=== PATIENT | female | born 1950 | race Caucasian/White ===

== ENCOUNTER → 2019-09-14 10:10 | Outpatient (CLI) | payer MEDICARE | END | disposition home or self-care (01) | LOC: D.MRI 10:10 | PROVIDERS: ATTEND Internal Medicine Nephrology | DX: I70.1 Atherosclerosis of renal artery (principal) ==

== ENCOUNTER → 2019-09-24 09:57 | Outpatient (CLI) | payer MEDICARE | END | disposition home or self-care (01) | LOC: D.CT 09:57 | PROVIDERS: ATTEND Family Medicine | DX: R91.1 Solitary pulmonary nodule (principal); M54.5 Low back pain ==

== ENCOUNTER 2019-10-08 07:33 | Outpatient (CLI) | payer MEDICARE ==
[~2019-10-08] VITALS: Ht 167.6 cm; Wt 102.3 kg
[2019-10-08 07:59] LABS: BASOPHILS 0.3 % (0-2); EOSINOPHILS 2.9 % (0-7); HEMATOCRIT 38.4 % (36.0-48.0); HEMOGLOBIN 11.7 g/dL (12-16); IMMATURE GRANULOCYTES 0.3 % (0-5); LYMPHOCYTES 25.5 % (15-50); MCH 28.3 pg (26.0-34.0); MCHC 30.5 g/dL (31.0-37.0); MEAN PLATELET VOLUME 8.6 fL (7.4-10.4); MONOCYTES 7.4 % (2-11); NEUTROPHILS 63.6 % (40-80); PLATELET COUNT 315 10x3/uL (130-400); RBC 4.13 10x6/uL (4.00-5.40); RDW 13.4 % (11.5-14.5); WBC 9.8 10x3/uL (4.8-10.8)
[2019-10-08 08:22] LABS: APTT 26.5 SECONDS (22.8-39.4); INR 0.93 (0.85-1.17); PROTIME 12.4 SECONDS (11.6-15.0)
[2019-10-08] MEDS ORDERED: AMITRIPTYLINE H50 MG PO (08:23)
[2019-10-08] MEDS ORDERED: ZOCOR20 MG PO (08:23)
[2019-10-08] MEDS ORDERED: TOPROL XL25 MG (08:24)
[2019-10-08] MEDS ORDERED: PLAVIX75 MG PO (08:25)
[2019-10-08] MEDS ORDERED: VITAMIN D5000 UNI1 PO (08:25)
[2019-10-08] MEDS ORDERED: TREXALL5 MG PO (08:27)
[2019-10-08 08:38] VITALS: BP 130/64; Ht 167.6 cm; Wt 102.3 kg
[2019-10-08 08:40] LABS: ANION GAP 8.7 mmol/L (8-16); CARBON DIOXIDE 30.2 mmol/L (21.0-32.0); CREATININE - SERUM 1.9 mg/dL (0.6-1.3); POTASSIUM - SERUM 4.9 mmol/L (3.5-5.1)
[2019-10-08] MEDS ORDERED: PROTONIX40 MG PO (08:42)
--- NOTE | 2019-10-08 12:47 | NUR ---
1150 INSTRUCTIONS GIVEN TO PT AND DRINKING WELL DENIES PAIN
[2019-10-10 14:09] LABS: ACID FAST SMEAR Negative (()); AFB SPECIMEN PROCESSING Concentration (())
[2019-10-12 12:09] LABS: FUNGUS STAIN Final report (())
== END 2019-10-08 18:08 ==
LOC: D.SP 07:33 → D.CT 10:00 → D.SP 18:08
PROVIDERS: Radiology Vascular & Interventional Radiology; ATTEND Family Medicine
DX: R19.00 Intra-abdominal and pelvic swelling, mass and lump, unspecified site (principal); E78.2 Mixed hyperlipidemia; E20.1 Pseudohypoparathyroidism; K21.9 Gastro-esophageal reflux disease without esophagitis; I12.9 Hypertensive chronic kidney disease with stage 1 through stage 4 chronic kidney disease, or unspecified chronic kidney disease; N18.3 Chronic kidney disease, stage 3 (moderate); M19.90 Unspecified osteoarthritis, unspecified site; R91.1 Solitary pulmonary nodule

== ENCOUNTER 2019-12-18 08:30 | Day surgery (SDC) | payer MEDICARE ==
[~2019-12-18] VITALS: Ht 167.6 cm; Wt 90.9 kg
[~2019-12-18 08:30] MED LIST: AMITRIPTYLINE H50 MG PO; PLAVIX75 MG PO; PROTONIX40 MG PO; TOPROL XL25 MG; TREXALL5 MG PO; VITAMIN D5000 UNI1 PO; ZOCOR20 MG PO
[2019-12-18 09:08] LABS: HEMATOCRIT 36.8 % (36.0-48.0); HEMOGLOBIN 11.4 g/dL (12-16); LYMPHOCYTES 26.2 % (15-50); MCH 28.2 pg (26.0-34.0); MCV 91.1 fL (80.0-100.0); MEAN PLATELET VOLUME 8.2 fL (7.4-10.4); NEUTROPHILS 61.9 % (40-80); PLATELET COUNT 341 10x3/uL (130-400); RBC 4.04 10x6/uL (4.00-5.40); RDW 12.8 % (11.5-14.5); WBC 7.2 10x3/uL (4.8-10.8)
[2019-12-18 09:15] LABS: ANION GAP 12.2 mmol/L (8-16); CALCIUM 9.6 mg/dL (8.5-10.1); CARBON DIOXIDE 28.3 mmol/L (21.0-32.0); CREATININE - SERUM 2.1 mg/dL (0.6-1.3); POTASSIUM - SERUM 4.5 mmol/L (3.5-5.1)
[2019-12-18 09:17] LABS: APTT 28.2 SECONDS (22.8-39.4); INR 0.97 (0.85-1.17); PROTIME 12.9 SECONDS (11.6-15.0)
[2019-12-18 09:33] VITALS: BP 128/74; Ht 167.6 cm; Wt 90.9 kg
--- NOTE | 2019-12-18 18:14 | NUR ---
1800 CXR W/O PNEUMOTHORAX. VSS. IV D/C'D WITH CANNULA INTACT.DISCHARGE INSTRUCTIONS GIVEN DISHCARGED HOME IN STABLE CONDITION W/O C/O
== END 2019-12-18 18:00 | disposition home or self-care (01) ==
LOC: D.SP 08:30 → D.CT 11:00 → D.SP 18:00
PROVIDERS: Radiology Diagnostic Radiology; ATTEND Family Medicine
DX: R91.1 Solitary pulmonary nodule (principal); E55.9 Vitamin D deficiency, unspecified; D64.9 Anemia, unspecified; K21.9 Gastro-esophageal reflux disease without esophagitis; I10 Essential (primary) hypertension; N18.3 Chronic kidney disease, stage 3 (moderate); E66.9 Obesity, unspecified; E21.3 Hyperparathyroidism, unspecified

== ENCOUNTER 2020-06-28 05:40 | Day surgery (SDC) | payer MEDICARE ==
[~2020-06-28] VITALS: Ht 167.6 cm; Wt 94.1 kg
[~2020-06-28 05:40] MED LIST changes: +PAXIL20 MG PO; +PERCOCET 5-3251 TAB PO; -TOPROL XL25 MG; +TOPROL XL25 MG PO; +TOPROL XL50 MG PO; +ULTRAM50 MG PO
[2020-06-28 06:11] LABS: BASOPHILS 0.7 % (0-2); HEMATOCRIT 37.1 % (36.0-48.0); HEMOGLOBIN 11.5 g/dL (12-16); IMMATURE GRANULOCYTES 0.1 % (0-5); LYMPHOCYTE ABS# 2.61 10x3/uL (1.18-3.74); LYMPHOCYTES 32.4 % (15-50); MCH 29.6 pg (26.0-34.0); MCV 95.4 fL (80.0-100.0); MEAN PLATELET VOLUME 8.8 fL (7.4-10.4); MONOCYTES 8.8 % (2-11); NEUTROPHIL ABS# 4.26 10x3/uL (1.56-6.13); PLATELET COUNT 306 10x3/uL (130-400); RBC 3.89 10x6/uL (4.00-5.40); RDW 13.5 % (11.5-14.5); WBC 8.1 10x3/uL (4.8-10.8)
[2020-06-28 06:20] LABS: ANION GAP 8.9 mmol/L (8-16); CALCIUM 9.4 mg/dL (8.5-10.1); CARBON DIOXIDE 28.5 mmol/L (21.0-32.0); CREATININE - SERUM 1.7 mg/dL (0.6-1.3); POTASSIUM - SERUM 4.4 mmol/L (3.5-5.1)
[2020-06-28 06:44] LABS: APTT 23.1 SECONDS (22.8-39.4)
[2020-06-28 06:45] LABS: INR 1.05 (0.85-1.17); PROTIME 12.7 SECONDS (11.6-15.0)
[2020-06-28 07:22] VITALS: BP 115/68; Ht 167.6 cm; Wt 94.1 kg
--- NOTE | 2020-06-28 10:02 | NUR ---
0928 SEE POST PROCEDURE CHECKLIST FOR VITAL SIGN TRENDS.
--- NOTE | 2020-06-28 10:14 | NUR ---
1005 DRESSING SITE CDI, SPOUSE AT SIDE, DISCHARGE TIME GIVEN.
== END 2020-06-28 11:40 | disposition home or self-care (01) ==
LOC: D.CT 05:40
PROVIDERS: Radiology Diagnostic Radiology; ATTEND Internal Medicine Medical Oncology
DX: C34.31 Malignant neoplasm of lower lobe, right bronchus or lung (principal); D64.81 Anemia due to antineoplastic chemotherapy; T50.995A Adverse effect of other drugs, medicaments and biological substances, initial encounter; T50.995D Adverse effect of other drugs, medicaments and biological substances, subsequent encounter; T50.995S Adverse effect of other drugs, medicaments and biological substances, sequela; C77.9 Secondary and unspecified malignant neoplasm of lymph node, unspecified; C79.70 Secondary malignant neoplasm of unspecified adrenal gland; R91.1 Solitary pulmonary nodule